=== PATIENT | female | born 1945 | race Caucasian/White ===

== ENCOUNTER 2017-10-19 11:24 | Outpatient (CLI) | payer MEDICARE, BC ==
[~2017-10-19] VITALS: Ht 172.7 cm; Wt 75.0 kg
--- NOTE | ~2017-10-19 | HEMODYNAMI ---
PATIENT:RASHID BOYD MEDICAL RECORD: [id number] : 49 LOCATION:[facility] ADMISSION DATE: 10/19/17 Generatedon:10/19/201713:36 Patient name: RASHID MCCORMICK Patient #: [id number] SSN: : 1945 Date of study: 10/19/2017 Page: Of Hemodynamic Procedure Report Patient Data Patient Demographics Procedure consent was obtained First Name: RASHID Gender: Female Last Name: BRITTANY MCCORMICK : 1945 Middle Initial: LIANNE Age: 72 year(s) Patient #: [id number] Race: Unknown Additional ID: [id number] Contact details [address]: [address] [place] [address] State: [place] City: [place] Zip code: [address] Admission Admission Data Admission Date: 10/19/2017 Admission Time: 11:24 Arrival Date: 10/19/2017 Arrival Time: 13:30 Admit Source: Other Insurance Payor: Medicare Lab Results Lab Result Date: 10/19/2017 Lab Result Time: 0:00 Biochemistry Name Units Result Min Max BUN mg/dl 13 --(--*-)-- 7 18 Creatinine mg/dl 0.8 --(-*--)-- 0.6 1.3 CBC Name Units Result Min Max Hemoglobin g/dl 13.9 --(*---)-- 13.5 17.5 Procedure Procedure Types Cath Procedure Diagnostic Procedure LHC LHC w/Coronaries Miscellaneous Procedures Moderate Sedation up to 30 minutes Procedure Description Procedure Date Procedure Date: 10/19/2017 Procedure Start Time: 13:13 Procedure End Time: 13:31 Procedure Staff Name Function Jad Posadas MD Performing Physician Phyllis Fall RT Monitor Marcela Hicks RT Scrub Nikki Moyer RN Nurse Procedure Data Cath Procedure Fluoroscopy Diagnostic fluoroscopy Total fluoroscopy Time: 1.5 time: 1.5 min min Diagnostic fluoroscopy Total fluoroscopy dose: 308 dose: 308 mGy mGy Contrast Material Contrast Material Type Amount (ml) Isovue 300 46 Entry Location Entry Primary Successful Side Size Upsize Upsize Entry Closure Succes sful Closure Location (Fr) 1 (Fr) 2 (Fr) Remarks Device Remarks Femoral Right 5 Fr Exoseal artery Estimated blood loss: 5 ml Procedure Complications No complications Procedure Medications Medication Administration Route Dosage 0.9% NaCl I.V. 100 ml/hr Oxygen NC 2 l/min Lidocaine 2% added to field 20 Heparin Flush Bag added to field 2 bags (1000units/500ml NS) Zofran I.V. 4 mg Radial Cocktail added to field 1 syringe (Verapomil 2mg/Nitro 400mcg/Heparin 1500units) Versed I.V. 1 mg Fentanyl 50 mcg Fentanyl 50 mcg Versed I.V. 1 mg Versed I.V. 1 mg Versed I.V. 1 mg Fentanyl 50 mcg Hemodynamics Rest HGB: 13.9 (g/dl) Heart Rate: 86 (bpm) Pressure Samples Time Site Value (mmHg) Purpose Heart Use Rate(bpm) 13:27 LV 161/86,89 Snapshot 86 13:27 LV 172/6,16 Snapshot 88 Gradients Valve Time Site Site Mean SEP/DFP Peak To Heart Use 1 2 (mmHg) (sec/min) Peak Rate (mmHg) (bpm) Aortic 13:28 LV AO 67 Snapshots Pre Cath Intra NCS Post Cath Vital Signs Time Heart Resp SPO2 NIBP (mmHg) Rhythm Pain Sedation Rate (ipm) (%) Status Level (bpm) 13:03:34 84 16 100 164/97(138) NSR 0 (11) 10(A) , No pain 13:07:48 81 16 99 157/99(134) NSR 0 (11) 10(A) , No pain 13:12:04 86 14 97 147/85(123) NSR 0 (11) 10(A) , No pain 13:16:16 76 16 97 139/91(123) NSR 0 (11) 10(A) , No pain 13:20:26 81 17 100 150/93(121) NSR 0 (11) 9(A) , No pain 13:24:40 88 18 99 151/92(130) NSR 0 (11) 9(A) , No pain 13:28:52 87 14 99 157/87(118) NSR 0 (11) 10(A) , No pain Medications Time Medication Route Dose Verified Delivered Reason Notes Effectiveness by by 12:53:12 0.9% NaCl I.V. 100 Jad Nikki used for ml/hr Cuauhtemoc Moyer RN procedure 12:53:21 Oxygen NC 2 l/min Jad Nikki Per Cuauhtemoc Moyer RN physician 12:53:29 Lidocaine 2% added 20ml Jad Jad for local to vial Cuauhtemoc Posadas MD anesthetic field 12:53:37 Heparin Flush added 2 bags Jad Jad used for Bag to Cuauhtemoc Posadas MD procedure (1000units/500ml field NS) 13:02:30 Zofran I.V. 4 mg Jad Nikki nausea Cuauhtemoc Moyer RN 13:02:43 Radial Cocktail added 1 Jad Jad for unable (Verapomil to syringe Cuauhtemoc Posadas MD vasodilation to 2mg/Nitro field use. 400mcg/Heparin access 1500units) rt groin 13:12:28 Versed I.V. 1 mg Jad Nikki for sedation Cuauhtemoc Moyer RN 13:12:38 Fentanyl 50 mcg Jad Nikki for sedation Cuauhtemoc Moyer RN 13:16:05 Fentanyl 50 mcg Jad Nikki for sedation Cuauhtemoc Moyer RN 13:16:14 Versed I.V. 1 mg Jad Nikki for sedation Cuauhtemoc Moyer RN 13:19:04 Versed I.V. 1 mg Jad Nikki for sedation Cuauhtemoc Moyer RN 13:21:14 Versed I.V. 1 mg Jad Nikki for sedation Cuauhtemoc Moyer RN 13:21:21 Fentanyl 50 mcg Jad Nikki for sedation Cuauhtemoc Moyer RN Procedure Log Time Note 12:46:46 Diagnostic Cath Status : Elective 12:47:13 Phyllis Fall RT(R) sent for patient. Start room use. 12:47:15 Time tracking: Regular hours 12:47:20 Plan of Care:Hemodynamics will remain stable., Cardiac rhythm will remain stable., Comfort level will be maintained., Respiratory function will remain adequate., Patient/ family verbilizes understanding of procedure., Procedure tolerated without complication., Recovers from procedure without complications.. 12:49:10 Admit Source: Other 12:49:17 Arrival Date: 10/19/2017 1:30:00 PM 12:49:23 Insurance Payor : Medicare 12:53:12 0.9% NaCl 100 ml/hr I.V. was administered by Nikki Moyer RN; used for procedure; 12:53:21 Oxygen 2 l/min NC was administered by Nikki Moyer RN; Per physician; 12:53:29 Lidocaine 2% 20ml vial added to field was administered by Jad Posadas MD; for local anesthetic; 12:53:37 Heparin Flush Bag (1000units/500ml NS) 2 bags added to field was administered by Jad Posadas MD; used for procedure; 12:54:35 Patient received from Pre/Post Procedure Room to [facility] 2 Alert and oriented. Tansferred to table in Supine position. 12:54:37 Warm blankets applied, and charlie hugger turned on for patient comfort. 12:54:37 Correct patient and procedure confirmed by team. 12:54:39 Signed procedure consent form obtained from patient. 12:54:40 ECG and BP/O2 sat monitors applied to patient. 13:02:30 Zofran 4 mg I.V. was administered by Nikki Moyer RN; nausea; 13:02:32 Vital chart was started 13:02:43 Radial Cocktail (Verapomil 2mg/Nitro 400mcg/Heparin 1500units) 1 syringe added to field was administered by Jad Posadas MD; for vasodilation; unable to use. access rt groin 13:04:09 Baseline sample Acquired. 13:04:13 Rhythm: sinus rhythm 13:04:15 Full Disclosure recording started 13:04:40 H&P Date Dictated: 10/19/2017 Greater than 30 days; new H&P dictated by physician. Or brief H&P completed.. 13:04:41 Pre-procedure instructions explained to patient. 13:04:43 Pre-op teaching completed and patient verbalized understanding. 13:04:47 Family in waiting room. 13:04:49 Patient NPO since Midnight. 13:06:03 Is the patient allergic to Iodine/contrast media? No. 13:06:04 Was the patient premedicated? No 13:06:06 Is patient on blood thinner?No 13:06:07 Patient diabetic? No. 13:06:10 Previous problem with sedation/anesthesia? No ? 13:06:36 Snore? Yes 13:06:37 Sleep apnea? No 13:06:38 Deviated septum? No 13:06:39 Opens mouth fully? Yes 13:06:40 Sticks out tongue? Yes 13:06:41 Airway obstruction? No ? 13:06:58 Dentures? No ? 13:07:03 Pre procedure: right dorsailis pedis pulse 1+ Palpable, but thready & weak; easily obliterated 13:07:05 Pre procedure: left dorsailis pedis pulse 1+ Palpable, but thready & weak; easily obliterated 13:07:10 Modified Thad's test Radial < 7 seconds 13:07:11 Patient pain scale 0/10 ?. 13:07:17 IV patent on arrival in left forearm with 0.9% NaCl at [facility]. 13:09:09 Lab Result : BUN 13 mg/dl 13:09:09 Lab Result : Creatinine 0.8 mg/dl 13:09:09 Lab Result : Hemoglobin 13.9 g/dl 13:09:35 Lab results completed and on chart. 13:09:39 Right Radial & Right Groin area was prepped with chlora-prep and draped in sterile fashion 13:09:40 Alarms reviewed by R. N. 13:09:41 Sharps counted by scrub and verified by R.N. 13:09:43 Physician arrived 13:09:43 --------ALL STOP TIME OUT------ 13:09:44 Final Timeout: patient, procedure, and site verified with staff and physician. All members of the team are in agreement. 13:09:45 Right Radial & Right Groin site verified by team. 13:09:48 Physical assessment completed. ASA score P 2 - A patient with mild systemic disease as per Jad Posadas MD. 13:09:52 Sedation plan: IV Moderate Sedation Medication:Versed, Fentanyl 13:09:58 Use device set Radial Dx or PCI 13:10:00 ACIST Syringe (01977) opened to sterile field. 13:10:01 Medline Cath Pack ([id number]) opened to sterile field. 13:10:01 Bag Decanter () opened to sterile field. 13:10:02 SHEATH 6FR Slender ([id number]) opened to sterile field. 13:10:03 DIAGNOSTIC WIRE .035 260cm J wire (215196) opened to sterile field. 13:10:04 ACIST Hand Control (81468) opened to sterile field. 13:10:04 ACIST Manifold (62892) opened to sterile field. 13:10:11 NEEDLE Cook 21G 4cm Radial (G21630) opened to sterile field. 13:10:15 TR BAND Standard ([id number]) opened to sterile field. 13:10:23 Zero performed for pressure channel P1 13:12:28 Versed 1 mg I.V. was administered by Nikki Moyer RN; for sedation; 13:12:38 Fentanyl 50 mcg was administered by Nikki Moyer RN; for sedation; 13:13:16 Procedure started. 13:13:21 Local anesthetic to right radial artery with Lidocaine 2% by Jad Posadas MD.INITIAL ACCESS ONLY 13:16:05 Fentanyl 50 mcg was administered by Nikki Moyer RN; for sedation; 13:16:14 Versed 1 mg I.V. was administered by Nikki Moyer RN; for sedation; 13:18:22 Unable to gain radial access, moving to femoral approach. 13:18:48 SHEATH 5FR [place] (OXP286) opened to sterile field. 13:19:04 Versed 1 mg I.V. was administered by Nikki Moyer RN; for sedation; 13:19:08 Local anesthetic to right femoral artery with Lidocaine 2% by Jad Posadas MD.ADDITIONAL ACCESS 13:19:17 A 5 Fr sheath was inserted into the Right Femoral artery 13:21:14 Versed 1 mg I.V. was administered by Nikki Moyer RN; for sedation; 13:21:21 Fentanyl 50 mcg was administered by Nikki Moyer RN; for sedation; 13:22:15 DIAGNOSTIC Multipack 5Fr catheter set ([id number]) opened to sterile field. 13:22:24 5 Fr jl 4 guide catheter was inserted over the wire 13::41 LCA angiography performed. 13::46 Injector settings: Ml/sec: 3, Volume: 6, 13:24:14 Catheter removed. 13:24:21 5 Fr 3drc guide catheter was inserted over the wire 13:25:30 RCA angiography performed. 13::44 Injector settings: Ml/sec: 3, Volume: 6, 13:25:52 Catheter removed. 13:26:13 5 Fr pigtail guide catheter was inserted over the wire 13::34 LV hemodynamics recorded. 13::35 LV gram done using POSEY 13::38 Injector settings: Ml/sec: 5, Volume: 15, 13:27:43 EF : 50 % 13:28:08 Catheter removed. 13:28:17 EXOSEAL 5Fr (EX500) opened to sterile field. 13:28:29 Sheath removed intact; hemostasis achieved with Exoseal to the Right Femoral artery. 13:29:06 Procedure ended.(Physican Out) 13:30:07 Fluoroscopy time 01.50 minutes. 13:30:11 Fluoroscopy dose: 308 mGy 13:30:11 Flurop Dose total: 308 13:30:14 Contrast amount:Isovue 300 46ml. 13:30:16 Sharps counted by scrub and verified by R.N. 13:30:18 Insertion/operative site no bleeding no hematoma. 13:30:25 Post-op/insertion site Right Femoral artery dressed using a 4 x 4 and Tegaderm. 13:30:27 Post right femoral artery:stable 13:30:29 Post Procedure Pulses reassessed and unchanged 13:30:32 Post procedure rhythm: unchanged. 13::35 Estimated blood loss: 5 ml 13::38 Post procedure instruction explained to patient.Patient verbalizes understanding. 13:30:38 Patient needs reinforcement of post procedure teaching. 13:30:49 Procedure type changed to Cath procedure, Diagnostic procedure, LHC, LHC w/Coronaries, Miscellaneous Procedures, Moderate Sedation up to 30 minutes 13::49 Procedure and supply charges have been captured, reviewed, submitted and are correct. 13:31:13 Procedure Complication : No complications 13:31:15 Vital chart was stopped 13:31:16 See physician's report for complete and final results. 13:31:29 Report given to Pre/Post Procedure Room. 13:31:34 Patient transfered to Pre/Post Procedure Room with Stretcher. 13:31:46 Procedure ended. 13:31:46 Full Disclosure recording stopped 13:32:01 End room use (Document Last) Device Usage Item Name Manufacture Quantity Catalog Hospital Part Current Minimal Lot# / Number Charge Number Stock Stock Serial# Code [facility] 1 30540 [id number] [id number] 422326 20 Syringe Medical (56985) Systems Inc Medline Cath Cardinal 1 [id number] 166945 92200 973514 5 Pack Health ([id number]) Bag Decanter Microtek 1 2001S 337385 33373 138142 5 (2001S) Medical Inc. SHEATH 6FR Terumo 1 [id number] 303032 666298 107194 40 Slender ([id number]) DIAGNOSTIC St Marcellus 1 698358 123187 259380 338777 30 WIRE .035 260cm J wire (866704) ACIST Hand Acist 1 92074 955259 775803 935479 5 Control Medical (80100) Systems Inc ACIST Acist 1 37242 213023 566530 556004 5 Manifold Medical (64985) Systems Inc NEEDLE Cook Cook Medical 1 [id number] 519857 864534 776278 5 21G 4cm Radial (X60963) TR BAND Terumo 1 [id number] 695124 029274 495627 40 Standard ([id number]) SHEATH 5FR Terumo 1 NEI436 147844 849895 491102 40 [place] (HHC449) DIAGNOSTIC Cardinal 1 DX5679 203131 72876 112707 30 OpenFin 5Fr catheter set (DX0912) EXOSEAL 5Fr Cardinal 1 EX500 757748 206345 945537 10 (EX500) Health Signature Audit [place] Stage Time Signature Unsigned Intra-Procedure 10/19/2017 Phyllis Fall 1:36:31 PM RT(R) Signatures Monitor : Phyllis Fall RT Signature : Date : Time : [facility] [address] [place] [address]
[~2017-10-19 11:24] MED LIST: LOSARTAN POTASS25 MG PO
[2017-10-19] MEDS ORDERED: RESTORIL15 MG PO (11:50)
[2017-10-19] MEDS ORDERED: NORVASC5 MG PO (11:51)
[2017-10-19] MEDS ORDERED: LOMOTIL TABLET1 TAB PO (11:51)
[2017-10-19] MEDS ORDERED: COZAAR100 MG PO (11:52)
[2017-10-19] MEDS ORDERED: BETAGAN 0.5% OPH5 ML EACH EYE (11:52)
[2017-10-19 11:58] VITALS: BP 153/86; Ht 172.7 cm; Wt 75.0 kg
[2017-10-19 12:01] LABS: BASOPHILS 0.7 % (0-2); EOSINOPHILS 3.9 % (0-7); HEMATOCRIT 41.9 % (36.0-48.0); HEMOGLOBIN 13.9 g/dL (12-16); IMMATURE GRANULOCYTES 0.2 % (0-5); LYMPHOCYTES 21.7 % (15-50); MCH 28.8 pg (26.0-34.0); MCHC 33.2 g/dL (31.0-37.0); MCV 86.9 fL (80.0-100.0); MEAN PLATELET VOLUME 9.9 fL (7.4-10.4); MONOCYTES 8.7 % (2-11); NEUTROPHILS 64.8 % (40-80); PLATELET COUNT 271 10x3/uL (130-400); RBC 4.82 10x6/uL (4.00-5.40); RDW 14.1 % (11.5-14.5); WBC 4.4 10x3/uL (4.8-10.8)
[2017-10-19 12:12] LABS: CALC OSMOLALITY 282 mosm/kg (275-300); CALCIUM 9.7 mg/dL (8.5-10.1); CARBON DIOXIDE 27.8 mmol/L (21.0-32.0); CHLORIDE - SERUM 104 mmol/L (98-107); CREATININE - SERUM 0.8 mg/dL (0.6-1.3); GLUCOSE 104 mg/dL (74-106); POTASSIUM - SERUM 3.8 mmol/L (3.5-5.1); SODIUM 142 mmol/L (136-145); UREA NITROGEN 13 mg/dL (7-18); eGFR NON AFRICAN AMERICAN 75 mL/min (90-120)
== END 2017-10-19 16:03 | disposition home or self-care (01) ==
LOC: D.CATH 11:24
PROVIDERS: Internal Medicine Cardiovascular Disease
DX: I20.9 Angina pectoris, unspecified (principal); R94.30 Abnormal result of cardiovascular function study, unspecified; I10 Essential (primary) hypertension; E78.5 Hyperlipidemia, unspecified; Z01.812 Encounter for preprocedural laboratory examination

== ENCOUNTER 2018-01-28 12:30 | Outpatient (CLI) | payer MEDICARE, BC ==
[2017-10-19 11:58] VITALS: BMI 25.1
[~2018-01-28 12:30] MED LIST changes: +BETAGAN 0.5% OPH5 ML EACH EYE; +COZAAR100 MG PO; +LOMOTIL TABLET1 TAB PO; +NORVASC5 MG PO; +RESTORIL15 MG PO
[2018-02-03 03:10] LABS: OVA + PARASITE EXAM Final report (())
== END 2018-01-28 23:59 | disposition home or self-care (01) ==
LOC: D.LAB 12:30
PROVIDERS: Internal Medicine Gastroenterology
DX: R19.7 Diarrhea, unspecified (principal); Z87.19 Personal history of other diseases of the digestive system

== ENCOUNTER → 2018-03-22 08:41 | Outpatient (CLI) | payer MEDICARE, BC ==
[2017-10-19 11:58] VITALS: BMI 25.1
[2018-03-24 06:15] LABS: ENDOMYSIAL ANTIBODY IGA Negative (Negative)
[2018-03-24 12:17] LABS: ANTIGLIADIN IGA 2 units (0-19); ANTIGLIADIN IGG 1 units (0-19)
== END | disposition home or self-care (01) ==
LOC: D.LAB 08:41
PROVIDERS: Internal Medicine Gastroenterology
DX: R19.7 Diarrhea, unspecified (principal)

== ENCOUNTER → 2018-04-24 07:28 | Outpatient (CLI) | payer MEDICARE, BC ==
[2017-10-19 11:58] VITALS: BMI 25.1
== END | disposition home or self-care (01) ==
LOC: D.NM 07:28
DX: R19.7 Diarrhea, unspecified (principal)

== ENCOUNTER 2018-10-04 19:00 | Outpatient (CLI) | payer MEDICARE, BC ==
[2017-10-19 11:58] VITALS: BMI 25.1
== END 2018-10-04 23:59 | disposition home or self-care (01) ==
LOC: D.MAMMO 19:00
DX: Z12.31 Encounter for screening mammogram for malignant neoplasm of breast (principal)

== ENCOUNTER → 2019-06-06 08:55 | Outpatient (CLI) | payer MEDICARE, BC ==
[2017-10-19 11:58] VITALS: BMI 25.1
[2019-06-11 20:06] LABS: OVA + PARASITE EXAM Final report (())
== END | disposition home or self-care (01) ==
LOC: D.LAB 08:55
PROVIDERS: ATTEND Internal Medicine Gastroenterology
DX: R19.7 Diarrhea, unspecified (principal)

== ENCOUNTER → 2019-10-29 10:17 | Outpatient (CLI) | payer MEDICARE, BC ==
[2017-10-19 11:58] VITALS: BMI 25.1
== END | disposition home or self-care (01) ==
LOC: D.CT 10-15 09:30
PROVIDERS: ATTEND Family Medicine
DX: R22.30 Localized swelling, mass and lump, unspecified upper limb (principal)

== ENCOUNTER → 2020-02-15 12:41 | Outpatient (CLI) | payer MEDICARE, BC ==
[2017-10-19 11:58] VITALS: BMI 25.1
== END | disposition home or self-care (01) ==
LOC: D.US 12:41
PROVIDERS: ATTEND Family Medicine
DX: G45.4 Transient global amnesia (principal)

== ENCOUNTER 2020-12-10 09:15 | Outpatient (CLI) | payer MEDICARE, BC ==
[2017-10-19 11:58] VITALS: BMI 25.1
== END 2020-12-10 09:45 | disposition home or self-care (01) ==
LOC: D.MAMMO 09:15
PROVIDERS: ATTEND Family Medicine
DX: Z12.31 Encounter for screening mammogram for malignant neoplasm of breast (principal)